=== PATIENT | male | born 1940 ===

== ENCOUNTER 2022-08-13 00:57 | Emergency (ER) | payer MEDICARE, SELFPAY ==
--- NOTE | ~2022-08-13 | XR_ITS ---
EXAMINATION: XR CHEST CLINICAL INFORMATION: Cough for 2 weeks COMPARISON: None available. TECHNIQUE: 2 views of the chest were obtained. FINDINGS: Normal symmetric lung volumes. No parenchymal consolidation. No pleural effusion. No pneumothorax. Cardiomediastinal silhouette and pulmonary vascularity are within normal limits. Aorta is atherosclerotic. No acute osseous abnormalities. XR/XR chest 2V IMPRESSION: Clear lungs
[2022-08-13 01:05] VITALS: BP 139/75; BP 140/80; PULSE 74; PULSE 75; RESP 20; TEMP 36.5; O2SAT 98; BMI 21.0
[2022-08-13 01:21] LABS: MANUAL DIFF FLAG NO
[2022-08-13 01:32] LABS: Basophils Percent Auto 0.3 % (0-2); Eosinophils Absolute Auto 0.1 X10*3/uL (0.0-0.4); Eosinophils Percent Auto 0.9 % (0-4); Hematocrit 38.9 % (42.0-52.0); Hemoglobin 12.9 g/dl (14.0-18.0); Imm Gran Abs Auto 0.05 X10*3/uL (0.00-0.03); Imm Gran Pct Auto 0.5 % (0.0-0.4); Lymphocytes Absolute Auto 0.7 X10*3/uL (1.2-4.9); Lymphocytes Percent Auto 6.6 % (20-40); Mean Corpuscular HGB Conc 33.2 g/dl (31.0-36.0); Mean Corpuscular Hemoglobin 31.9 pg (27.0-33.0); Mean Platelet Volume 10.6 fL (9.4-12.4); Monocytes Absolute Auto 0.4 X10*3/uL (0.1-1.2); Monocytes Percent Auto 3.7 % (2-11); Neutrophils Absolute Auto 9.7 x10*3/uL (2.0-8.3); Platelet Count 147 X10*3/uL (160-400); Red Blood Count 4.05 X10*6/uL (4.60-5.80); Red Cell Distribution Width 13.2 % (11.0-16.0)
[2022-08-13 01:38] LABS: Alanine Aminotransferase 12 U/L (0-40); Alkaline Phosphatase 66 U/L (39-117); Anion Gap 15 (12-20); Aspartate Amino Transferase 16 U/L (5-37); Bilirubin Direct 0.1 mg/dL (0.0-0.5); Bilirubin Total 0.6 mg/dL (0.0-1.0); Blood Urea Nitrogen 30 mg/dL (9-16); Calcium 9.4 mg/dL (8.4-10.2); Carbon Dioxide 25 mmol/L (22-29); Chloride 107 mmol/L (96-108); Creatinine Clr Calc Pharmacy 33.6; Estimated Glomerular Filt Rate 50; Glucose Random 112 mg/dL (60-115); Lipase 46 U/L (8-78); Potassium 3.8 mmol/L (3.3-5.1); Sodium 143 mmol/L (135-145); Total Protein 6.7 g/dL (6.5-8.0)
[2022-08-13 01:48] VITALS: BP 133/77; PULSE 73; RESP 16; TEMP 36.7; O2SAT 97
--- NOTE | 2022-08-13 02:35 | ED_ITS ---
HPI - Nausea/Vomiting/Diarrhea General Chief complaint: Nausea/Vomiting/Diarrhea Stated complaint: nausea/vomiting Time Seen by Provider: 08/13/22 02:17 Source: patient and family (Son, Moncho) Mode of arrival: EMS Limitations: no limitations History of Present Illness HPI Narrative: 82-year-old male who presents emergency department for evaluation of nausea and vomiting. The patient and his son ate dinner together at around 17:00 hours. They ate barbecue ribs, corn and sausage. The patient states that he felt well until 22:30 hours when he began to vomit. He states that he vomited approximately 4 times and he describes as a large amount of emesis which was yellow in color with no food or blood in the emesis. The patient denied abdominal pain. He denied fever, chills, rhinorrhea, sore throat, shortness of breath, chest pain, abdominal pain, frequency, urgency, dysuria or diarrhea. He also denies myalgias or arthralgias. He states that he has had a nonproductive cough for approximately 3 weeks which is not improved. Related Data Previous Rx's Medication Instructions Recorded ondansetron 4 mg disintegrating 4 mg PO Q6-8H PRN nausea and 08/13/22 tablet vomiting #14 tabs Allergies Allergy/AdvReac Type Severity Reaction Status Date / Time No Known Allergies Allergy Verified 08/13/22 01:12 Review of Systems Review of Systems: Yes all other systems are reviewed and are negative [facility] Past Medical History [facility] Narrative: Past medical history sent for hypertension, hyperlipidemia and gout. Social history: He denies tobacco, alcohol and drug use Social History Social History Advance Directives: No Advance Directives Information Provided: No Physical Exam Vital Signs: Vital Signs: Last Vital Signs Temp 98.1 F 08/13/22 01:48 Pulse 73 08/13/22 01:48 Resp 16 08/13/22 01:48 BP 133/77 08/13/22 01:48 Pulse Ox 97 08/13/22 01:48 O2 Del Method Room Air 08/13/22 01:48 BMI result Body Mass Index 21.0 Const: General: cooperative and no acute distress Orientation/co nsciousness: oriented to person and oriented to place Limitations: no limitations HEENT: Head: Yes normal to inspection, Yes normocephalic and Yes atraumatic Ears: external ears normal General nose exam: Normal external nose present Face and sinus: Yes normal facial exam Mouth: Normal oral and palatal mucosa present Throat: Yes posterior oropharynx normal Eyes: General: appearance normal, both eyes and all related structures Pupils: Equal, round and reactive pupils present Neck: Neck: Yes normal visual inspection, Yes no lymphadenopathy, Yes trachea midline and Yes supple Chest: Chest palpation & inspection: normal inspection of the chest and normal palpation of entire chest wall Resp: Effort & Inspection: normal respiratory effort and able to speak in complete sentences Auscultation: clear to auscultation bilaterally Cardio: Rate: regular rate Rhythm: regular rhythm Heart sounds: S1 normal heart sound present, S2 normal heart sound present and no murmurs GI: Inspection: Yes normal to inspection Palpation (GI): Soft to palpation, nontender and no guarding Auscultation: normal bowel sounds : General: Yes no CVA tenderness Back/Spine/Pelvis: Back: no CVA tenderness Skin: General skin exam: no rashes or lesions noted Neuro: General: oriented to person and oriented to place Cranial nerves: Yes CN's II-XII intact bilaterally and Yes Equal, round and reactive pupils present Cognition (Neuro): normal cognition Motor exam (neuro): 5/5 motor strength present throughout Extrem: General: Yes normal to inspection Psych: Appearance: grossly normal Speech and movement: Normal speech and movement present Affect: normal affect Attitude: cooperative Medications Administered Discontinued Medications Generic Name Dose Route Start Last Admin Trade Name Freq PRN Reason Stop Dose Admin Sodium Chloride 1,000 mls @ 999 mls/hr 08/13/22 02:33 08/13/22 03:23 Ns IV 08/13/22 03:33 Infused .Q1H1M STA Infusion Ondansetron HCl 4 mg 08/13/22 02:33 08/13/22 02:40 Ondansetron Hcl 4 Mg/2 Ml Vial IVPUSH 08/13/22 02:34 4 mg ONCE ONE Administration Medical Decision Making Medical Decision Making MDM Narrative: 82-year-old male who presents emergency department for evaluation of nausea and vomiting which began at 22:30 hours, he had 4 episodes of yellowish emesis with no blood or food in the emesis. The patient ate barbecued ribs, corn and sausage at 17:00 hours and his son ate the same food and is well with no symptoms. The patient denied any prodromal symptoms and denies abdominal pain. He has had a nonproductive cough for 3 weeks. Vital signs were normal. Physical examination revealed no abdominal tenderness. I ordered a laboratory evaluation to include CBC, CMP, lipase. Chest x-ray was also ordered. 0239: My interpretation of the patient's diagnostic data is as follows: CBC revealed a low platelet count of a [id number] otherwise was unremarkable. BUN was elevated at 30 with an elevated creatinine of 1.35 with a GFR 50. There are no old values breast suspected these are at his baseline. Lipase was normal. Chest x-ray was unremarkable. I ordered normal saline x1 L and Zofran 4 mg IV. Patient most likely has a viral syndrome as the cause was symptoms. Differential Diagnosis Differential diagnosis includes but is not limited to gastritis, esophagitis, biliary disease, pancreatitis, food poisoning, viral syndrome Lab Data [facility] Lab Attestation statement: I reviewed the patient's lab results. See [facility] 08/13/22 01:15 08/13/22 01:15 Labs: Lab Results 08/13/22 08/13/22 Range/Units 01:15 01:15 WBC 11.0 H (4.8-10.8) X10*3/uL RBC 4.05 L (4.60-5.80) X10*6/uL Hgb 12.9 L (14.0-18.0) g/dl Hct 38.9 L (42.0-52.0) % MCV 96.0 (80.0-98.0) fL MCH 31.9 (27.0-33.0) pg MCHC 33.2 (31.0-36.0) g/dl RDW 13.2 (11.0-16.0) % Plt Count 147 L (160-400) X10*3/uL MPV 10.6 (9.4-12.4) fL Immature Gran % (Auto) 0.5 H (0.0-0.4) % Neut % (Auto) 88.0 H (45-73) % Lymph % (Auto) 6.6 L (20-40) % Churchill % (Auto) 3.7 (2-11) % Eos % (Auto) 0.9 (0-4) % Baso % (Auto) 0.3 (0-2) % Lymph # (Auto) 0.7 L (1.2-4.9) X10*3/uL Churchill # (Auto) 0.4 (0.1-1.2) X10*3/uL Eos # (Auto) 0.1 (0.0-0.4) X10*3/uL Baso # (Auto) 0.0 (0.0-0.2) X10*3/uL Abs Immat Gran (auto) 0.05 H (0.00-0.03) X10*3/uL Absolute Neuts (auto) 9.7 H (2.0-8.3) x10*3/uL Absolute Nucleated RBC 0.000 (0.0-0.012) X10*3/uL Nucleated RBC % (auto) 0.0 (0.0-0.2) /100WBC Sodium 143 (135-145) mmol/L Potassium 3.8 (3.3-5.1) mmol/L Chloride 107 (96-108) mmol/L Carbon Dioxide 25 (22-29) mmol/L Anion Gap 15 (12-20) BUN 30 H (9-16) mg/dL Creatinine 1.35 (0.5-1.4) mg/dL Estim Creat Clear Calc 33.6 Estimated GFR 50 Random Glucose 112 (60-115) mg/dL Calcium 9.4 (8.4-10.2) mg/dL Total Bilirubin 0.6 (0.0-1.0) mg/dL Direct Bilirubin 0.1 (0.0-0.5) mg/dL AST 16 (5-37) U/L ALT 12 (0-40) U/L Alkaline Phosphatase 66 (39-117) U/L Total Protein 6.7 (6.5-8.0) g/dL Albumin 4.0 (3.5-5.0) g/dL Lipase 46 (8-78) U/L Independent Interpretation I performed an independent interpretation of an: Plain X-Ray Interpretation: My independent interpretation of the patient's two view chest x-ray revealed no acute disease Radiology Impression Discussion of test interpretation with radiology: I have reviewed the radi ologist's reading. Radiologist Impression: 2 views of the chest were obtained. FINDINGS: Normal symmetric lung volumes. No parenchymal consolidation. No pleural effusion. No pneumothorax. Cardiomediastinal silhouette and pulmonary vascularity are within normal limits. Aorta is atherosclerotic. No acute osseous abnormalities. XR/XR chest 2V IMPRESSION: Clear lungs Dictated By:Alfredo Neal MD Discharge Plan Discharge Clinical Impression: Vomiting Qualifiers: Migraine intractability: nonintractable Patient Disposition: Home, Self-Care Instructions: Acute Nausea and Vomiting (ED) Additional Instructions: Your blood work was normal. Your exam revealed no abdominal tenderness which is reassuring Your nausea vomiting may have been caused by the food that you ate or it may be caused by a viral infection Take Zofran ODT 4 mg pills, 1 pill dissolved in your mouth every 8 hours as needed for nausea and vomiting. Follow-up with your doctor in 2 days. Please return to the emergency department if your symptoms get worse or if you develop any symptoms that are concerning to you. Prescriptions: New ondansetron 4 mg tablet,disintegrating 4 mg PO Q6-8H PRN (Reason: nausea and vomiting) Qty: 14 0RF
[2022-08-13] MEDS: 0.9 % Sodium Chloride 1,000 ML 999 ML IV (02:40)
[2022-08-13] MEDS: ondansetron HCL 4 MG/2 ML VIAL IVPUSH (02:40)
[2022-08-13 04:19] VITALS: BP 125/62; PULSE 70; RESP 18; O2SAT 97
== END 2022-08-13 04:21 | disposition home or self-care (01) ==
PROVIDERS: Emergency Provider Emergency Medicine Emergency Medical Services
DX: G43.909 Migraine, unspecified, not intractable, without status migrainosus (principal); R05.9 Cough, unspecified; Z79.899 Other long term (current) drug therapy
CPT/HCPCS: 36415; 71046; 80048; 80076; 83690; 85025; 96361; 96374; 99284; J2405